=== PATIENT | female | born 1945 | race Caucasian/White ===

== ENCOUNTER → 2018-08-13 | Outpatient (CLI) | payer OTHER ==
--- NOTE | 2018-08-13 12:31 | PCVCIMAG ---
APPROVED REPORT Study performed: 08/13/2018 09:37:30 Exam: Stress Echocardiogram Indication: Hyperlipidemia, Diabetes, shoulder pain Patient Location: Echo lab Stress Nurse: Rama Smith RN Status: routine Ht: 6 ft 0 in HR: 74 bpm Rhythm: NSR Medical History Medical History: Diabetic Noninsulin Exercise History: Physically active Procedure The patient underwent an Exercise Stress Test using the Mane Protocol. Blood pressure, heart rate, and EKG were monitored. An Echocardiogram was performed by air analysis engineering technician in four stages in quad fashion. At peak stress, four selected images were obtained and placed side by side with resting images for comparison. Stress Test Details Stress Test: Pharmacologic stress was paired with low level exercise. HR Resting HR: 74 bpmMax Heart Rate (APMHR): 149 bpm Max HR Achieved: 160 bpmTarget HR (85% APMHR): 126 bpm % of APMHR: 107 Recovery HR: 89 bpm HR response to stress: Normal HR response to stress BP Resting BP: 122/70 mmHg Max BP: 170/66 mmHg Recovery BP: 130/74 mmHg BP response to stress: Normal blood pressure response to stress. ECG Resting ECG: Sinus Rhythm Stress ECG: Sinus Rhythm ST Change: Normal Maximum ST Deviation: 0 mm Arrhythmia: None Recovery ECG: Sinus Rhythm Recovery ST Change: Normal Recovery ST Deviation: 0 mm Recovery Arrhythmia: None Clinical Reason for Termination: Maximal effort Exercise duration: 9 min 14 sec Highest Stage Achieved: Stage 3: 3.4 mph at 14% grade. Exercise capacity: 10.80 METs Overall Exercise Capacity for Age: Good Angina Score: None Stress ECG Conclusion Clinical: Non-ischemic ECG: Non-ischemic Sim Treadmill Score is 9.0 which is Low risk. Pre-Stress Echo The resting Echocardiogram showed normal left ventricular contractility with an estimated Ejection Fraction of about 55-60%. Normal wall motion in all segments on baseline images. Post-Stress Echo The stress Echocardiogram showed normal left ventricular contractility with an estimated Ejection Fraction of about 60-65%. Normal augmentation of wall motion in all segments on post stress images. Clinical No clinical or ECG evidence for ischemia. Conclusion Clinical Response: Non-ischemic Exercise Capacity: Superior Stress ECG Response: Non-ischemic Stress Echo Images: Non-ischemic The left ventricle is normal in size and wall thickness in both the rest and stress images. Normal stress echocardiogram with maximal exercise stress. Other Information Study Quality: Fair <Conclusion> The left ventricle is normal in size and wall thickness in both the rest and stress images. Normal stress echocardiogram with maximal exercise stress.
== END | disposition home or self-care (01) ==
LOC: PCVCIMAG 09:13
PROVIDERS: ATTEND Internal Medicine
DX: M25.519 Pain in unspecified shoulder (principal); E78.5 Hyperlipidemia, unspecified; E11.9 Type 2 diabetes mellitus without complications
CPT/HCPCS: 93325; 93351